=== PATIENT | male | born 1935 | race Caucasian/White ===

== ENCOUNTER → 2017-02-04 | Outpatient (CLI) | payer BC ==
[~2017-02-04] MED LIST: ALLO100T PO; ATOR-24 PO; CMD/25 PO; CYAN100T PO; DILT-113 PO; DOCU100C PO; ESCI1TAB9 PO; FOLI400T41 PO; INDA2.5T PO; PRLSR20 PO; PYRI100T4 PO
--- NOTE | 2017-02-04 10:37 | DIAGNOSTIC IMAGING REPORT ---
ULTRASOUND SOFT TISSUES NECK CLINICAL HISTORY: Hyperparathyroidism. COMPARISON STUDY: Chest CT dated 09/27/2016. FINDINGS: Real-time, grayscale, and color flow sonography of the soft tissues of the neck is performed to assess for the presence of parathyroid adenoma. Normal thyroid tissue is identified. There is no soft tissue lesion/nodule seen posterior to the thyroid gland to suggest parathyroid adenoma. No regional lymphadenopathy is identified. IMPRESSION: There is no sonographic evidence of parathyroid adenoma as clinically queried. Electronically signed by: Dane Bowman M.D. 02/04/2017 10:35 AM Dictated Date/Time: 02/04/2017 10:34 AM
== END | disposition home or self-care (01) ==
LOC: C.ULTR 09:57
PROVIDERS: ATTEND Family Medicine
DX: E21.3 Hyperparathyroidism, unspecified (principal)